=== PATIENT | female | born 1990 | race Caucasian/White ===

== ENCOUNTER 2018-05-28 14:49 | Emergency (ER) | payer OTHER ==
[~2018-05-28] VITALS: Ht 165.1 cm; Wt 68.0 kg
[~2018-05-28 14:49] MED LIST: ATIVAN0.5 MG PO; ATIVAN1 MG PO; CARAFATE 1 GM TA1 G1 PO; CLEOCIN HCL300 MG PO; NICOTINE TRANSDE7 MG TD; NOHOMEMEDICATIONS; NORCO 5-325 TA1 EACH PO; OMEPRAZOLE40 MG PO; PRENATAL; TYLENOL325 MG PO; ULTRAM 50MG TAB50 MG PO; ZANTAC 150MG T150 MG PO; ZOFRAN4 MG PO
[2018-05-28] MEDS ORDERED: PROBIOTIC1 EAC1 PO (15:04)
[2018-05-28 16:08] VITALS: BP 109/70
== END 2018-05-28 16:10 | disposition home or self-care (01) ==
LOC: M.ERS 14:49
DX: S90.31XA Contusion of right foot, initial encounter (principal); E03.9 Hypothyroidism, unspecified; F17.210 Nicotine dependence, cigarettes, uncomplicated; Z90.49 Acquired absence of other specified parts of digestive tract; W22.8XXA Striking against or struck by other objects, initial encounter; Y93.89 Activity, other specified; Y92.89 Other specified places as the place of occurrence of the external cause; Y99.8 Other external cause status